=== PATIENT | male | born 1930 | race Native Hawaiian/Other Pacific Islander ===

== ENCOUNTER 2017-02-07 10:26 | Outpatient (CLI) | payer OTHER ==
[2017-02-07 10:52] LABS: PLATELET COUNT 119 K/uL (142-355)
[2017-02-07 11:36] LABS: POTASSIUM 4.1 mmol/L (3.6-5.2)
== END 2017-02-07 20:26 | disposition home or self-care (01) ==
LOC: LABW 10:26
PROVIDERS: Internal Medicine
DX: I10 Essential (primary) hypertension (principal); N39.0 Urinary tract infection, site not specified
CPT/HCPCS: 36415; 80053; 80061; 81000; 84443; 85027; 87077; 87086; 87088; 87186

== ENCOUNTER 2017-08-14 08:13 | Outpatient (CLI) | payer OTHER ==
[2017-08-14 09:37] LABS: POTASSIUM 3.8 mmol/L (3.6-5.2)
[2017-08-14 09:47] LABS: PLATELET COUNT 139 K/uL (142-355)
== END 2017-08-14 19:29 | disposition home or self-care (01) ==
LOC: LABW 08:13
PROVIDERS: Internal Medicine
DX: I10 Essential (primary) hypertension (principal)
CPT/HCPCS: 36415; 80053; 80061; 81000; 84443; 85027